=== PATIENT | male | born 1990 | race African-American/Black ===

== ENCOUNTER 2020-03-24 22:57 | Emergency (ER) | payer SELFPAY ==
[~2020-03-24] VITALS: Ht 177.8 cm; Wt 70.0 kg
[2020-03-24 22:59] VITALS: BP 116/81
[2020-03-24 23:37] LABS: CLARITY URINE CLEAR (CLEAR); COLOR URINE YELLOW (YELLOW); KETONES URINE NEGATIVE (NEGATIVE); LEUKOCYTE ESTERASE URINE 2+ (NEGATIVE); NITRITE URINE NEGATIVE (NEGATIVE); OCCULT BLOOD URINE NEGATIVE (NEGATIVE); PROTEIN URINE NEGATIVE (NEGATIVE); SPECIFIC GRAVITY URINE 1.032 (1.005-1.030)
[2020-03-24] MEDS ORDERED: LIDOCAINE HCL/PF 1% 10 MG/ML 5ML VIAL IJ ONE (23:45)
[2020-03-24] MEDS ORDERED: AZITHROMYCIN 500 MG TABLET PO ONE (23:45)
[2020-03-24] MEDS ORDERED: CEFTRIAXONE SODIUM 250 MG/VIAL IM ONE (23:45)
== END 2020-03-25 00:22 | disposition home or self-care (01) ==
LOC: ER 22:57
DX: N39.0 Urinary tract infection, site not specified (principal); A64 Unspecified sexually transmitted disease; Z91.013 Allergy to seafood
CPT/HCPCS: 81003; 87077; 87086; 96372; 99283; J0696; J3490